=== PATIENT | female | born 1970 | race Caucasian/White ===

== ENCOUNTER 2025-04-30 09:37 | Emergency (ER) | payer OTHER ==
[2025-04-30 12:26] VITALS: BP 151/78; PULSE 69
== END 2025-04-30 13:00 | disposition home or self-care (01) ==
LOC: FB.ED 09:37
DX: J10.1 Influenza due to other identified influenza virus with other respiratory manifestations (principal); Z88.2 Allergy status to sulfonamides; Z79.899 Other long term (current) drug therapy; Z87.891 Personal history of nicotine dependence
CPT/HCPCS: 71045; 87428; 99284; J7620; 99283; A9270-GY